=== PATIENT | male | born 1950 | race Caucasian/White ===

== ENCOUNTER 2017-07-01 05:36 | Outpatient (CLI) | payer MEDICARE, OTHER ==
[~2017-07-01] VITALS: Ht 185.4 cm; Wt 122.5 kg
[2017-07-01] MEDS ORDERED: METF1000 PO (13:43)
[2017-07-01] MEDS ORDERED: PIOG30TA38 PO (13:43)
[2017-07-01] MEDS ORDERED: OMEG-82 PO (13:43)
[2017-07-01] MEDS ORDERED: INSU100V SQ (13:43)
[2017-07-01] MEDS ORDERED: GLIM4TAB PO (13:43)
[2017-07-01] MEDS ORDERED: LOSA50TA36 PO (13:43)
[2017-07-01] MEDS ORDERED: INSU100I29 SQ (13:43)
== END 2017-07-01 13:51 ==
LOC: PREOP 05:36
PROVIDERS: ATTEND Surgery
DX: Z01.818 Encounter for other preprocedural examination (principal); L98.9 Disorder of the skin and subcutaneous tissue, unspecified

== ENCOUNTER 2017-07-03 06:49 | Day surgery (SDC) | payer MEDICARE, OTHER ==
[~2017-07-03] VITALS: Ht 185.4 cm; Wt 122.5 kg
[~2017-07-03 06:49] MED LIST: GLIM4TAB PO; INSU100I29 SQ; INSU100V SQ; LOSA50TA36 PO; METF1000 PO; OMEG-82 PO; PIOG30TA38 PO
--- OUTSIDE RECORDS SUMMARY | 2017-07-03 06:52 | XMS REPORT ---
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
--- OUTSIDE RECORDS SUMMARY | 2017-07-03 06:52 | XMS REPORT ---
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
--- OUTSIDE RECORDS SUMMARY | 2017-07-03 06:52 | XMS REPORT ---
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
--- OUTSIDE RECORDS SUMMARY | 2017-07-03 06:53 | XMS REPORT ---
Author Author JOE MATTHEW Organization [employer] Address Unknown Phone Unavailable Care Team Providers Care Regional Loss Prevention Manager Name Role Phone JOE MATTHEW CP Unavailable Allergies No Known Allergies Problems Problem Type Condition Code Onset Dates Condition Status Problem Essential hypertension, benign 401.1 Active Problem Narcolepsy, without cataplexy 347.00 Active Problem Diabetes mellitus without mention of complication, type II or unspecified type, uncontrolled 250.02 Active Problem Encounter for long-term (current) use of other medications V58.69 Active Medications Medication Code System Code Instructions Start Date End Date Status Dosage Levemir [facility] 61047689742 100 UNIT/ML INJECT 45 UNITS SUBCUTANEOUS TWICE DAILY Results No Known Results Summary Purpose eClinicalWorks Submission
--- OUTSIDE RECORDS SUMMARY | 2017-07-03 06:53 | XMS REPORT ---
Author Author JOE MATTHEW [facility] eClinicalWorks Address Unknown Phone Unavailable Care Team Providers Care Scale Agent Name Role Phone JOE MATTHEW CP Unavailable Allergies, Adverse Reactions, Alerts Substance Reaction Event Type N.K.D.A. 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 Active Problem Essential hypertension I10 Active Assessment Type 2 diabetes mellitus with diabetic neuropathy E11.40 Active Medications Medication Code System Code Instructions Start Date End Date Status Dosage Humalog [facility] [address]-25 100 UNIT/ML Subcutaneous 3 times a day 5 units ac meals Metformin HCl [facility] [address]-68 1000 MG Orally Twice a day 1 tablet with meals ReliOn Insulin Syringe [facility] 32[address] 29G X /2 Jul 17, 2015 as directed Losartan Potassium [facility] [address]-94 50 MG Orally Once a day 1 tablet Glimepiride [facility] [address]-03 4 MG Orally 2 times a day 1 tablet Levemir [facility] 59538466649 100 UNIT/ML INJECT 45 UNITS SUBCUTANEOUS TWICE DAILY Procedures Procedure Coding System Code Date Office Visit, Est Pt., Level 3 CPT-4 83644 Sep 25, 2015 Vital Signs Date/Time: Sep 25, 2015 Temperature 98.0 F Weight 265.3 lbs Height 72 in BMI 35.98 Index Blood Pressure Diastolic 68 mmHg Blood Pressure Systolic 122 mmHg Cardiac Monitoring Heart Rate 82 bpm Results No Known Results Summary Purpose eClinicalWorks Submission
--- OUTSIDE RECORDS SUMMARY | 2017-07-03 06:53 | XMS REPORT ---
Author Author JOE MATTHEW [facility] eClinicalWorks Address Unknown Phone Unavailable Care Team Providers Care Agency Trainer Name Role Phone JOE MATTHEW CP Unavailable Allergies, Adverse Reactions, Alerts Substance Reaction Event Type N.K.D.A. 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 Active Problem Essential hypertension I10 Active Medications Medication Code System Code Instructions Start Date End Date Status Dosage Losartan Potassium [facility] [address]-09 50 MG Orally Once a day 1 tablet Glimepiride [facility] [address]-45 4 MG Orally 2 times a day 1 tablet ReliOn Insulin Syringe [facility] [address] 29G X 1/2 as directed Glucocard Expression Test ND 0 Test Strips Once a day and as needed Aug 13, 2016 as directed Metformin HCl [facility] [address]-53 1000 MG Orally Twice a day 1 tablet with meals Levemir [facility] 13525362827 100 UNIT/ML Subcutaneous 2 times a day INJECT 45 UNITS SUBCUTANEOUS TWICE DAILY Humalog [facility] [address]-83 100 UNIT/ML Subcutaneous 3 times a day 10 units ac meals Procedures Procedure Coding System Code Date COMPREHEN METABOLIC PANEL CPT-4 07579 Aug 13, 2016 LIPID PANEL CPT-4 84774 Aug 13, 2016 GLYCATED HEMOGLOBIN TEST CPT-4 70565 Aug 13, 2016 VENIPUNCT, ROUTINE* CPT-4 08876 Aug 13, 2016 ASSAY OF PSA, TOTAL CPT-4 29673 Aug 13, 2016 Office Visit, Est Pt., Level 4 CPT-4 41651 Aug 13, 2016 Vital Signs Date/Time: Aug 13, 2016 Cardiac Monitoring Heart Rate 84 bpm Weight 269.3 lbs Height 72 in BMI 36.52 Index Blood Pressure Diastolic 74 mmHg Blood Pressure Systolic 126 mmHg Results Name Result Date Reference Range Unit Abnormality Flag ROUTINE VENIPUNCTURE Summary Purpose eClinicalWorks Submission
--- OUTSIDE RECORDS SUMMARY | 2017-07-03 06:53 | XMS REPORT ---
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
--- OUTSIDE RECORDS SUMMARY | 2017-07-03 06:53 | XMS REPORT ---
Author Author JOE MATTHEW [facility] eClinicalWorks Address Unknown Phone Unavailable Care Team Providers Care Insurance Verification Clerk Name Role Phone JOE MATTHEW CP Unavailable Allergies, Adverse Reactions, Alerts Substance Reaction Event Type N.K.D.A. Info Not Available Non Drug Allergy Problems Problem Type Condition Code Onset Dates Condition Status Problem Essential hypertension, benign 401.1 Active Problem Narcolepsy, without cataplexy 347.00 Active Problem Diabetes mellitus without mention of complication, type II or unspecified type, uncontrolled 250.02 Active Assessment Essential hypertension, benign 401.1 Active Assessment Narcolepsy, without cataplexy 347.00 Active Problem Encounter for long-term (current) use of other medications V58.69 Active Assessment Diabetes mellitus without mention of complication, type II or unspecified type, uncontrolled 250.02 Active Medications Medication Code System Code Instructions Start Date End Date Status Dosage Metformin HCl [facility] 10681345850 1000MG TAKE ONE TABLET BY MOUTH TWICE DAILY WITH FOOD ReliOn Insulin Syringe [facility] [address] 29G X 1/2" 0.5 ML Jul 17, 2015 as directed Levemir [facility] 11866211768 100 UNIT/ML INJECT 45 UNITS SUBCUTANEOUS TWICE DAILY Metformin HCl [facility] [address]-51 1000 MG Orally Twice a day 1 tablet with meals Levemir [facility] [address]-56 100 UNIT/ML Subcutaneous 2 times a day 45 units Glimepiride [facility] [address]-90 4 MG Orally 2 times a day 1 tablet Losartan Potassium [facility] [address]-63 50 MG Orally Once a day 1 tablet Humalog [facility] [address]-45 100 UNIT/ML Subcutaneous Once a day 5 units braekfast Procedures Procedure Coding System Code Date Office Visit, Est Pt., Level 3 CPT-4 29240 Jul 17, 2015 COMPREHEN METABOLIC PANEL CPT-4 49664 Jul 17, 2015 GLYCATED HEMOGLOBIN TEST CPT-4 21927 Jul 17, 2015 VENIPUNCT, ROUTINE* CPT-4 67310 Jul 17, 2015 Vital Signs Date/Time: Jul 17, 2015 Temperature 97.6 F Weight 266.5 lbs Height 72 in BMI 36.14 Index Blood Pressure Diastolic 82 mmHg Blood Pressure Systolic 138 mmHg Cardiac Monitoring Heart Rate 82 bpm Results Name Result Date Reference Range Unit Abnormality Flag A1C (IN HOUSE) CMP Summary Purpose eClinicalWorks Submission
[2017-07-03 07:15] VITALS: BP 138/73
[2017-07-03] MEDS ORDERED: ceFAZolin 2 GM/NS 50 ML IV ONE (07:30)
[2017-07-03] MEDS ORDERED: LACTATED RINGERS 1,000 ML IV PRN (07:55)
[2017-07-03] MEDS ORDERED: proPOfol 200 MG/20 ML (DIPRIVAN) VIAL IV ONE (08:40)
[2017-07-03] MEDS ORDERED: fentaNYL INJECTION 100 MCG/2 ML AMP ONE ×2 (08:40→10:22)
[2017-07-03] MEDS ORDERED: MIDAZOLAM 2 MG/2 ML (VERSED) VIAL ONE (08:40)
--- NOTE | 2017-07-03 08:51 | Progress Note-Pre Operative ---
Pre-Operative Progress Note H&P Reviewed The H&P was reviewed, patient examined and no changes noted. Date Seen by Provider: Jul 03, 2017 Time Seen by Provider: 08:50 Date H&P Reviewed: Jul 03, 2017 Time H&P Reviewed: 08:50 Pre-Operative Diagnosis: open wound forehead, sebacious cyst forehead UMA KEBEDE DO Jul 03, 2017 08:51
[2017-07-03] MEDS ORDERED: BUP/EPI 0.5% 1:200,000 (MARCAINE) 10ML VIAL IJ ONE (09:00)
[2017-07-03] MEDS ORDERED: LIDOCAINE 1% INJ 20 ML (XYLOCAINE) VIAL ONE (09:01)
[2017-07-03] MEDS ORDERED: SEVOFLURANE (ULTANE) 15 ML INHAL SOLN ONE ×2 (09:20→10:36)
[2017-07-03] MEDS ORDERED: LACTATED RINGERS 1,000 ML IV ONE ×2 (09:20→10:34)
[2017-07-03] MEDS ORDERED: ONDANSETRON 4 MG/2 ML (SDV) Z0FRAN ONE (09:49)
[2017-07-03] MEDS ORDERED: morphine INJ 10 MG/ML 1ML (SYR OR VIAL) IVP PRN (10:45)
[2017-07-03] MEDS ORDERED: ONDANSETRON 4 MG/2 ML (SDV) Z0FRAN IVP PRN (10:45)
[2017-07-03] MEDS ORDERED: HYDR-3812 PO (10:48)
--- NOTE | 2017-07-03 10:50 | Discharge Inst-Simple/Standard ---
Discharge Inst-Standard Discharge Medications New, Converted or Re-Newed RX: RX on Chart Patient Instructions/Follow Up Plan of Care/Instructions/FU: 10 DAYS POSSIBLE SUTURE REMOVAL DELIO KEEP AREA CLEAN AND DRY COVERED WITH 4X4 AND TAPE Activity as Tolerated: Yes Discharge Diet: Regular Diet Other Inst to Patient Follow up Appt: Make appointment for 10 DAYS Instructions: No lifting greater than 10 pounds. No strenuous activity. May shower in 24 hours, no tub bath or soaking. Use incentive spirometer at home as directed. No Smoking Skin/Wound Care: KEEP CLEAN AND DRY, KEEP COVERED TILL SCABBED OVER DAILY DRESSING CHANGE 4X4 AND TAPE Symptoms to Report: Appetite Changes, Extremity Discoloration, Numbness/Tingling, Swelling Increased , Bleeding Excessive, Eyesight Changes, Pain Increased, Urine Color Change, Constipation(Persistent), Fever over 101 degree F, Pain/Pressure in chest, Urinating Difficulty, Cough Up/Vomit Blood, Heart Beat Irreg/Pounding, Pain/ Pressure in jaw, Vaginal Bleeding Increase, Cramps in feet or legs, Lightheadedness, Pain/Pressure in shoulder, Diarrhea(Persistent), Memory Changes Suddenly, Questions/Concerns, Weight gain consecutive days, Dizziness/ Fainting, Nausea/Vomiting, Shortness of Breath, Weight gain over 2 pounds If questions or concerns contact your physician Or seek help at emergency department. UMA KEBEDE DO Jul 03, 2017 10:50
[2017-07-03 11:40] VITALS: BP 136/63
[2017-07-03 12:00] VITALS: BP 136/63
[2017-07-03 12:10] VITALS: BP 142/64
--- NOTE | 2017-07-03 21:50 | OPERATIVE REPORT ---
DATE OF SERVICE: 07/03/2017 PREOPERATIVE DIAGNOSIS: Open wound forehead and sebaceous cyst. POSTOPERATIVE DIAGNOSIS: Open wound forehead and sebaceous cyst. PROCEDURE: Excision of cysts 6 x 2.5 cm and 1 x 1 cm. SURGEON: Uma Chakraborty DO ANESTHESIA: General. ESTIMATED BLOOD LOSS: 200 mL. COMPLICATIONS: None. INDICATIONS: The patient is a 67-year-old male with a cyst on his forehead which he was explained risks and benefits of procedure. The patient has previously had these drained and attempted to be removed which patient said they abruptly came back. He understands risks and benefits of procedure including need for further surgical intervention and wishes to proceed. Consent was signed and in the chart. PROCEDURE: The patient was taken to the operating suite. He was prepped and draped kin sterile fashion. Surgical pause was performed. The more superior cyst had a small incision made over the skin but entered into a lot of scar tissue. Metzenbaums were used to dissect around it. The cyst was very thin and frail and was coming apart, which the cyst wall was attempted to be removed in its entirety. This was then irrigated with copious amounts of irrigation. This was also closed with 3-0 Prolene sutures in a simple interrupted fashion. An elliptical incision measuring 6 x 2.5 cm was made around the inferior cyst that was an open wound. Cautery was used to continue to dissect and raise the skin and subcutaneous tissue around the cyst until it was removed in its entirety. The skin had to be undermined in its entirety of the incision and then the wound was then closed after irrigating with copious amounts of irrigation with 3-0 Prolene in simple interrupted fashion. There was still a small opening in the skin which should fill in. The area was then washed and dried. Sterile bandages were applied. The patient tolerated the procedure well without any complications. He was taken to the recovery room in stable condition. Job ID: [id number] DocumentID: [id number] Dictated Date: 07/03/2017 12:21:53 Contact Center Consultant Date: 07/03/2017 21:49:51 Dictated By: UMA CHAKRABORTY DO
== END 2017-07-03 12:15 | disposition home or self-care (01) ==
LOC: SDC 06:49
PROVIDERS: ATTEND Surgery
DX: L72.3 Sebaceous cyst (principal); E11.9 Type 2 diabetes mellitus without complications; I10 Essential (primary) hypertension; G47.33 Obstructive sleep apnea (adult) (pediatric); F17.220 Nicotine dependence, chewing tobacco, uncomplicated; Z79.84 Long term (current) use of oral hypoglycemic drugs; Z79.899 Other long term (current) drug therapy
CPT/HCPCS: 82962; 87081; 88305

== ENCOUNTER 2017-08-31 05:41 | Outpatient (CLI) | payer MEDICARE, OTHER ==
[~2017-08-31] VITALS: Ht 185.4 cm; Wt 122.5 kg
[~2017-08-31 05:41] MED LIST changes: +HYDR-3812 PO
== END 2017-08-31 15:02 ==
LOC: PREOP 05:41
PROVIDERS: ATTEND Surgery
DX: Z01.818 Encounter for other preprocedural examination (principal); L98.9 Disorder of the skin and subcutaneous tissue, unspecified

== ENCOUNTER 2017-09-03 05:48 | Day surgery (SDC) | payer MEDICARE, OTHER ==
[~2017-09-03] VITALS: Ht 185.4 cm; Wt 122.5 kg
--- OUTSIDE RECORDS SUMMARY | 2017-09-03 05:55 | XMS REPORT ---
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 Active 187877435 Problem terminologist current use of insulin Z79.4 Active 129403135 ALLERGIES No Information SOCIAL HISTORY Never Assessed PLAN OF CARE VITAL SIGNS MEDICATIONS Medication Instructions Dosage Frequency Start Date End Date Duration Status Humalog 100 UNIT/ML Subcutaneous 3 times a day 20 units ac meals 8h 90 days Active RESULTS No Results PROCEDURES No Known procedures IMMUNIZATIONS No Known Immunizations MEDICAL (GENERAL) HISTORY Type Description Date Medical History hypertension Medical History sleep apnea Medical History narcolepsy Medical History diabetes mellitus-type 2- States he isn't checking bs real oftern States it was 160 this morning. Medical History cysts in left groin, scrotal area Medical History Diabetes mellitus without mention of complication, type II or unspecified type, uncontrolled Medical History Hordeolum of right eye Medical History Patient Declines a Statin Surgical History orthopedic surgery-lost fingers/part of left hand in work related accident; bone and skin graft 09/1975 Surgical History genito-urinary tract surgery-cyst removed from scrotal area Hospitalization History Hospitalization for surgery only
--- OUTSIDE RECORDS SUMMARY | 2017-09-03 05:55 | XMS REPORT ---
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 Active 657573765 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 867950486 ALLERGIES No Known Allergies SOCIAL HISTORY Never Assessed PLAN OF CARE Activity Details Follow Up 3 Months Reason:DM VITAL SIGNS Height 72 in 2017-03-05 Weight 267 lbs 2017-03-05 Temperature 97.4 degrees Fahrenheit 2017-03-05 Heart Rate 86 bpm 2017-03-05 Respiratory Rate 18 2017-03-05 BMI 36.21 kg/m2 2017-03-05 Blood pressure systolic 118 mmHg 2017-03-05 Blood pressure diastolic 72 mmHg 2017-03-05 MEDICATIONS Medication Instructions Dosage Frequency Start Date End Date Duration Status Losartan Potassium 50MG Orally Once a day 1 tablet 24h 30 Active Losartan Potassium 50 MG Orally Once a day 1 tablet 24h Active Levemir 100 UNIT/ML Subcutaneous 2 times a day INJECT 45 UNITS SUBCUTANEOUS TWICE DAILY 12h 90 days Active ReliOn Insulin Syringe 29G X 1/2 subcutaneously 5 times per day as directed Active Glimepiride 4 MG Orally 2 times a day 1 tablet 12h Active Humalog 100 UNIT/ML Subcutaneous 3 times a day 25 units ac meals 8h 90 days Active Metformin HCl 1000 MG Orally Twice a day 1 tablet with meals 12h Active Farxiga 10 mg Orally Once a day 1 tablet 24h February, May, 30 day(s) Active ReliOn Prime Test - In Vitro daily and prn as directed Active RESULTS Name Result Date Reference Range A1C (IN HOUSE) A1C IN HOUSE 9.6 4.3 - 5.6 % Previous A1c 10.1 Lot [id number] Exp date 10/2018 [facility] 2017-03-05 Glucose, Serum 280 65-99 BUN 17 8-27 Creatinine, Serum 0.97 0.76-1.27 eGFR If NonAfricn Am 82 >59 eGFR If Africn Am 94 >59 BUN/Creatinine Ratio 18 10-24 Sodium, Serum 138 134-144 Potassium, Serum 4.8 3.5-5.2 Chloride, Serum 100 96-106 Carbon Dioxide, Total 19 18-29 Calcium, Serum 9.3 8.6-10.2 Protein, Total, Serum 6.9 6.0-8.5 Albumin, Serum 4.3 3.6-4.8 Globulin, Total 2.6 1.5-4.5 A/G Ratio 1.7 1.2-2.2 Bilirubin, Total 0.8 0.0-1.2 Alkaline Phosphatase, S 68 39-117 AST (SGOT) 38 0-40 ALT (SGPT) 50 0-44 PROCEDURES Procedure Date Ordered Result Body Site GLYCATED HEMOGLOBIN TEST March 05, 2017 LAB NOT BILLED BY [facility] March 05, 2017 [facility] VISIT ESTABLISHED PATIENT March 05, 2017 VENIPUNCT, ROUTINE* March 05, 2017 IMMUNIZATIONS No Known Immunizations MEDICAL (GENERAL) HISTORY [...]
--- OUTSIDE RECORDS SUMMARY | 2017-09-03 05:55 | XMS REPORT ---
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 561670314 ALLERGIES No Known Allergies SOCIAL HISTORY Never Assessed PLAN OF CARE Activity Details Follow Up 3 Months Reason:DM VITAL SIGNS Height 72 in 2016-11-27 Weight 276.4 lbs 2016-11-27 Temperature 97.8 degrees Fahrenheit 2016-11-27 Heart Rate 76 bpm 2016-11-27 Respiratory Rate 20 2016-11-27 BMI 37.48 kg/m2 2016-11-27 Blood pressure systolic 130 mmHg 2016-11-27 Blood pressure diastolic 74 mmHg 2016-11-27 MEDICATIONS Medication Instructions Dosage Frequency Start Date End Date Duration Status Levemir 100 UNIT/ML Subcutaneous 2 times a day INJECT 45 UNITS SUBCUTANEOUS TWICE DAILY 12h 90 days Active Humalog 100 UNIT/ML Subcutaneous 3 times a day 20 units ac meals 8h 90 days Active Losartan Potassium 50 MG Orally Once a day 1 tablet 24h Active ReliOn Prime Test - In Vitro daily and prn as directed Nov, Active Glimepiride 4 MG Orally 2 times a day 1 tablet 12h Active Metformin HCl 1000 MG Orally Twice a day 1 tablet with meals 12h Active ReliOn Insulin Syringe 29G X 1/2 as directed Active Losartan Potassium 50MG Orally Once a day 1 tablet 24h 30 Active RESULTS Name Result Date Reference Range A1C (IN HOUSE) 2016-11-27 A1C IN HOUSE 10.1 4.3 - 5.6 % Previous A1c 10.0 Lot [id number] Exp date 08/2018 PROCEDURES Procedure Date Ordered Result Body Site GLYCATED HEMOGLOBIN TEST Nov 27, 2016 [facility] VISIT ESTABLISHED PATIENT Nov 27, 2016 IMMUNIZATIONS No Known Immunizations MEDICAL (GENERAL) HISTORY [...]
--- OUTSIDE RECORDS SUMMARY | 2017-09-03 05:57 | XMS REPORT ---
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 280115634 ALLERGIES No Known Allergies SOCIAL HISTORY Never Assessed PLAN OF CARE Activity Details Follow Up 1 Week Reason:lesion removal/suture removal VITAL SIGNS Height 72 in 2017-01-01 Weight 269.8 lbs 2017-01-01 Temperature 98.1 degrees Fahrenheit 2017-01-01 Heart Rate 96 bpm 2017-01-01 Respiratory Rate 20 2017-01-01 BMI 36.59 kg/m2 2017-01-01 Blood pressure systolic 128 mmHg 2017-01-01 Blood pressure diastolic 70 mmHg 2017-01-01 MEDICATIONS Medication Instructions Dosage Frequency Start Date End Date Duration Status Levemir 100 UNIT/ML Subcutaneous 2 times a day INJECT 45 UNITS SUBCUTANEOUS TWICE DAILY 12h 90 days Active Glimepiride 4 MG Orally 2 times a day 1 tablet 12h Active Losartan Potassium 50 MG Orally Once a day 1 tablet 24h Active ReliOn Prime Test - In Vitro daily and prn as directed Nov, Active Metformin HCl 1000 MG Orally Twice a day 1 tablet with meals 12h Active Losartan Potassium 50MG Orally Once a day 1 tablet 24h 30 Active Humalog 100 UNIT/ML Subcutaneous 3 times a day 20 units ac meals 8h 90 days Active Clindamycin HCl 300 MG Orally every 8 hrs 1 capsule 8h Dec,Dec 5 day(s) Active ReliOn Insulin Syringe 29G X 1/2 as directed Active RESULTS No Results PROCEDURES Procedure Date Ordered Result Body Site I & D SIMPLE ABSCESS 2017-01-01 N/A [facility] VISIT ESTABLISHED PATIENT January 01, 2017 DRAINAGE OF SKIN ABSCESS January 01, 2017 IMMUNIZATIONS No Known Immunizations MEDICAL (GENERAL) [...]
--- OUTSIDE RECORDS SUMMARY | 2017-09-03 05:59 | XMS REPORT | Continuity of Care Document ---
Author Author [facility] Address Unknown Phone Unavailable Allergies Medications Problems Date Dx Coded Attending Type Code Diagnosis Diagnosed By 03/07/2014 JHONNY VAUGHN DO 250.02 DIABETES MELLITUS WITHOUT MENTION OF COMPLICATION TYPE II OR UNSPECIFIED TYPE UNCONTROLLED 03/07/2014 JHONNY VAUGHN DO K 401.9 UNSPECIFIED ESSENTIAL HYPERTENSION 03/07/2014 JHONNY VAUGHN DO V58.69 LONG-TERM (CURRENT) USE OF OTHER MEDICATIONS 03/07/2014 MARIETTA VAUGHN DOA K 250.02 DIABETES MELLITUS WITHOUT MENTION OF COMPLICATION TYPE II OR UNSPECIFIED TYPE UNCONTROLLED 03/07/2014 JHONNY VAUGHN DO K 401.9 UNSPECIFIED ESSENTIAL HYPERTENSION 03/07/2014 JHONNY VAUGHN DO K V58.69 LONG-TERM (CURRENT) USE OF OTHER MEDICATIONS 03/07/2014 250.02 DIABETES MELLITUS WITHOUT MENTION OF COMPLICATION TYPE II OR UNSPECIFIED TYPE UNCONTROLLED 03/07/2014 401.9 UNSPECIFIED ESSENTIAL HYPERTENSION 03/07/2014 V58.69 LONG-TERM (CURRENT) USE OF OTHER MEDICATIONS 03/07/2014 MADL REHABILITATION ASSISTANT, JOE L 250.02 DIABETES MELLITUS WITHOUT MENTION OF COMPLICATION TYPE II OR UNSPECIFIED TYPE UNCONTROLLED 03/07/2014 MADL REHABILITATION ASSISTANT, JOE L 401.9 UNSPECIFIED ESSENTIAL HYPERTENSION 03/07/2014 MADL REHABILITATION ASSISTANT, JOE L V58.69 LONG-TERM (CURRENT) USE OF OTHER MEDICATIONS 03/07/2014 MADL REHABILITATION ASSISTANT, JOE L 250.02 DIABETES MELLITUS WITHOUT MENTION OF COMPLICATION TYPE II OR UNSPECIFIED TYPE UNCONTROLLED 03/07/2014 MADL REHABILITATION ASSISTANT, JOE L 401.9 UNSPECIFIED ESSENTIAL HYPERTENSION 03/07/2014 MADL REHABILITATION ASSISTANT, JOE L V58.69 LONG-TERM (CURRENT) USE OF OTHER MEDICATIONS 03/07/2014 MARIETTA VAUGHN DOA K 250.02 DIABETES MELLITUS WITHOUT MENTION OF COMPLICATION TYPE II OR UNSPECIFIED TYPE UNCONTROLLED 03/07/2014 JHONNY VAUGHN DO K 401.9 UNSPECIFIED ESSENTIAL HYPERTENSION 03/07/2014 JOHANA JHONNY Bob V58.69 LONG-TERM (CURRENT) USE OF OTHER MEDICATIONS 05/02/2014 JOHANA JHONNY K 250.02 DIABETES MELLITUS WITHOUT MENTION OF COMPLICATION TYPE II OR UNSPECIFIED TYPE UNCONTROLLED 05/02/2014 MARIETTA VAUGHN DOA K 401.1 HYPERTENSION, BENIGN ESSENTIAL 05/02/2014 250.02 DIABETES MELLITUS WITHOUT MENTION OF COMPLICATION TYPE II OR UNSPECIFIED TYPE UNCONTROLLED 05/02/2014 401.1 HYPERTENSION, BENIGN ESSENTIAL 05/02/2014 MADL REHABILITATION ASSISTANT, JOE L 250.02 DIABETES MELLITUS WITHOUT MENTION OF COMPLICATION TYPE II OR UNSPECIFIED TYPE UNCONTROLLED 05/02/2014 MADL REHABILITATION ASSISTANT, JOE L 401.1 HYPERTENSION, BENIGN ESSENTIAL 05/02/2014 MADL REHABILITATION ASSISTANT, JOE L 250.02 DIABETES MELLITUS WITHOUT MENTION OF COMPLICATION TYPE II OR UNSPECIFIED TYPE UNCONTROLLED 05/02/2014 MADL REHABILITATION ASSISTANT, JOE L 401.1 HYPERTENSION, BENIGN ESSENTIAL 05/02/2014 JOHANA JHONNY GOFF K 250.02 DIABETES MELLITUS WITHOUT MENTION OF COMPLICATION TYPE II OR UNSPECIFIED TYPE UNCONTROLLED 05/02/2014 JOHANA DO JHONNY K 401.1 HYPERTENSION, BENIGN ESSENTIAL 10/05/2014 MADL REHABILITATION ASSISTANT, JOE L 347.00 NARCOLEPSY WITHOUT CATAPLEXY 10/05/2014 JOHANA GOFF JHONNY K 347.00 NARCOLEPSY WITHOUT CATAPLEXY Procedures Code Description [place] [address] ROUTINE VENIPUNCTURE 05/02/2014 01530 CMP 05/02/2014 32641 MICRO ALBUMIN-IN HOUSE 05/02/2014 10236 A1C (IN-HOUSE) 54063 ROUTINE VENIPUNCTURE 10/05/2014 94194 A1C (IN-HOUSE) [id number] GFR CALC (RESULT ONLY) 10/05/2014 07209 CMP 10/05/2014 21940 ROUTINE VENIPUNCTURE 01/12/2015 29042 A1C (IN-HOUSE) [id number] GFR CALC (RESULT ONLY) 01/12/2015 02170 CMP 01/12/2015 Results Encounters ACCT No. Visit Date/Time Discharge Status Pt. Type Provider Facility Loc./Unit Complaint [id number] 01/12/2015 09:43:00 01/12/2015 23: 59:59 CLS Outpatient JHONNY VAUGHN DO [id number] 10/05/2014 13:19:00 10/05/2014 23: 59:59 CLS Outpatient JOE MATTHEW APRN [id number] 06/28/2014 11:06:00 06/28/2014 23: 59:59 CLS Outpatient JOE MATTHEW APRN [id number] 05/12/2014 05:14:00 05/12/2014 23: 59:59 CLS Outpatient [id number] 05/02/2014 09:14:00 05/02/2014 23: 59:59 CLS Outpatient JHONNY VAUGHN DO [id number] 03/07/2014 08:13:00 03/07/2014 23: 59:59 CLS Outpatient JHONNY VAUGHN DO
--- OUTSIDE RECORDS SUMMARY | 2017-09-03 05:59 | XMS REPORT ---
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
[2017-09-03 06:00] VITALS: BP 149/82
[2017-09-03] MEDS ORDERED: LACTATED RINGERS 1,000 ML IV PRN (06:22)
[2017-09-03] MEDS ORDERED: KETAMINE HCL 100 MG/ML 5 ML VIAL ONE (06:48)
[2017-09-03] MEDS ORDERED: ceFAZolin 2 GM/NS 50 ML IV ONE (07:00)
[2017-09-03] MEDS ORDERED: LIDOCAINE 1% INJ 20 ML (XYLOCAINE) VIAL ONE (07:20)
[2017-09-03] MEDS ORDERED: BUPIVACAINE 0.5% 30 ML (SENSORCAINE) VIAL ONE (07:20)
[2017-09-03] MEDS ORDERED: LIDOCAINE/EPI 1%-1:200,000 (XYLOCAINE) 10 ML VIAL ONE (07:40)
--- NOTE | 2017-09-03 07:42 | Progress Note-Pre Operative ---
Pre-Operative Progress Note H&P Reviewed The H&P was reviewed, patient examined and no changes noted. Date Seen by Provider: Sep 03, 2017 Time Seen by Provider: 07:42 Date H&P Reviewed: Sep 03, 2017 Time H&P Reviewed: 07:42 Pre-Operative Diagnosis: squamous cell carcinoma scalp UMA KEBEDE DO Sep 03, 2017 07:42
[2017-09-03] MEDS ORDERED: proPOfol 200 MG/20 ML (DIPRIVAN) VIAL IV ONE (08:31)
[2017-09-03] MEDS ORDERED: ONDANSETRON 4 MG/2 ML (SDV) Z0FRAN IVP PRN (09:15)
[2017-09-03] MEDS ORDERED: morphine INJ 10 MG/ML 1ML (SYR OR VIAL) IVP PRN (09:15)
[2017-09-03 09:30] VITALS: BP 160/83
--- NOTE | 2017-09-03 09:39 | Discharge Inst-Simple/Standard ---
Discharge Inst-Standard Patient Instructions/Follow Up Plan of Care/Instructions/FU: 2 WEEKS DELIO Activity as Tolerated: Yes Discharge Diet: Regular Diet Other Inst to Patient Follow up Appt: Make appointment for 2 week. Instructions: No lifting greater than 10 pounds. No strenuous activity. May shower in 24 hours, no tub bath or soaking. Use incentive spirometer at home as directed. No Smoking Skin/Wound Care: May remove bandages IN 24 HOURS. KEEP CLEAN AND DRY. You need to leave the white strips over incision on they will fall off on their own. Symptoms to Report: Appetite Changes, Extremity Discoloration, Numbness/Tingling, Swelling Increased , Bleeding Excessive, Eyesight Changes, Pain Increased, Urine Color Change, Constipation(Persistent), Fever over 101 degree F, Pain/Pressure in chest, Urinating Difficulty, Cough Up/Vomit Blood, Heart Beat Irreg/Pounding, Pain/ Pressure in jaw, Vaginal Bleeding Increase, Cramps in feet or legs, Lightheadedness, Pain/Pressure in shoulder, Diarrhea(Persistent), Memory Changes Suddenly, Questions/Concerns, Weight gain consecutive days, Dizziness/ Fainting, Nausea/Vomiting, Shortness of Breath, Weight gain over 2 pounds If questions or concerns contact your physician Or seek help at emergency department. UMA KEBEDE DO Sep 03, 2017 09:39
[2017-09-03 10:00] VITALS: BP 149/77
--- NOTE | 2017-09-03 15:17 | Progress Note-Post Operative ---
Post-Operative Progess Note Surgeon (s)/Clinical Rehabilitation Coordinator (s) Surgeon UMA KEBEDE DO Clinical Rehabilitation Coordinator: na Pre-Operative Diagnosis squamous cell carcinoma scalp Post-Operative Diagnosis same Procedure & Operative Findings Date of Procedure 09/03/17 Procedure Performed/Findings reexcision skin lesion scalp 6.8x1 cm Anesthesia Type mac c local Estimated Blood Loss Estimated blood loss (mL): 120mL Specimens/Packing Specimens Removed skin lesion scalp UMA KEBEDE DO Sep 03, 2017 15:17
--- NOTE | 2017-09-03 20:16 | OPERATIVE REPORT ---
DATE OF SERVICE: 09/03/2017 PREOPERATIVE DIAGNOSIS: Squamous cell carcinoma. POSTOPERATIVE DIAGNOSIS: Squamous cell carcinoma. PROCEDURE: Reexcision of skin lesion of the scalp 6.8 x 1 cm. SURGEON: Uma Chakraborty DO ANESTHESIA: MAC with local. ESTIMATED BLOOD LOSS: 120 mL. INDICATIONS: The patient is a 67-year-old male with large cystic appearing lesion that was removed previously came back as squamous cell carcinoma, margins were positive. The patient's skin was extremely tight at that time, but we allowed time for the skin to stretch some. The patient was explained risks and benefits of procedure and wished to proceed with procedure. Consent was signed on the chart. The patient also understands that he may need further surgery. He also has another area on the scalp of that feels cystic and he once removed as well, but we want to do this in stages. The patient is in agreement with the entire plan. PROCEDURE: The patient was taken to the operating suite, was prepped and draped in sterile fashion. Surgical pause was performed. Local anesthetic was infiltrated into the area with epinephrine and a #15 blade scalpel was used to make an incision as elliptical in nature 6.8 x 1 cm and taking skin and subcutaneous tissue. The specimen was labeled short suture superiorly and long suture laterally. Hemostasis was achieved. The wound was irrigated. The skin was then closed using 2-0 Prolene in simple interrupted fashion. The area was then washed and dried, sterile bandage was applied. The patient tolerated the procedure well without any complications and was taken to recovery room in stable condition. Job ID: [id number] DocumentID: [id number] Dictated Date: 09/03/2017 15:21:00 Histotechnologist Supervisor Date: 09/03/2017 20:15:30 Dictated By: UMA CHAKRABORTY DO
== END 2017-09-03 10:10 | disposition home or self-care (01) ==
LOC: SDC 05:48
PROVIDERS: ATTEND Surgery
DX: C44.42 Squamous cell carcinoma of skin of scalp and neck (principal); E11.9 Type 2 diabetes mellitus without complications; I10 Essential (primary) hypertension; G47.33 Obstructive sleep apnea (adult) (pediatric); G47.419 Narcolepsy without cataplexy; F17.220 Nicotine dependence, chewing tobacco, uncomplicated; Z79.4 Long term (current) use of insulin
CPT/HCPCS: 82962; 87081